=== PATIENT | female | born 1990 | race Caucasian/White ===

== ENCOUNTER 2018-10-02 10:31 | Inpatient (IN) | payer MEDICAID ==
[2018-10-02] MEDS: AMPICILLIN 2 GM/NS (PMX) 100 ML IV (11:09)
[2018-10-02] MEDS: LACTATED RINGER'S 1,000 ML IV (11:09)
[2018-10-02 11:22] LABS: ADD MAN DIFF? NO
[2018-10-02] MEDS ORDERED: LIDOCAINE 1% (MPF) 30 ML INJ (11:22)
[2018-10-02 11:29] LABS: ADD UMIC YES; UR AMORPHOUS CRYSTAL MODERATE /HPF (NONE SEEN); UR ASCORBIC ACID NEGATIVE (NEGATIVE); UR BACTERIA MODERATE /HPF (NONE SEEN); UR BILIRUBIN (Dip) NEGATIVE (NEGATIVE); UR BLOOD (Dip) 3+ mg/dL (NEGATIVE); UR CLARITY CLOUDY (CLEAR); UR COLOR AMBER (YELLOW); UR GLUCOSE (Dip) NEGATIVE (NEGATIVE); UR KETONES (Dip) TRACE mg/dL (NEGATIVE); UR LEUKOCYTE ESTERASE (Dip) 2+ Leu/ul (NEGATIVE); UR MUCUS FEW /HPF (NONE SEEN); UR NITRITE (Dip) NEGATIVE (NEGATIVE); UR RBC > 182 /HPF (0-5); UR SQUAMOUS EPITHELIAL CELL MODERATE /HPF (FEW); UR TOTAL PROTEIN (Dip) 1+ mg/dl (NEGATIVE); UR UROBILINOGEN (Dip) NEGATIVE (NEGATIVE); UR WBC 53 /HPF (0-5)
[2018-10-02 11:30] LABS: BASOPHILS % 0.3 % (0.0-2.0); EOSINOPHILS % 0.4 % (0.0-7.0); HEMATOCRIT 34.8 % (37.0-47.0); LYMPHOCYTES # 1.6 10^3/ul (0.8-2.9); MEAN CORPUSCULAR HEMOGLOBIN 27.7 pg (29.0-33.0); MEAN CORPUSCULAR HGB CONC 31.6 g/dl (32.0-37.0); MEAN CORPUSCULAR VOLUME 87.7 fl (82.0-101.0); MEAN PLATELET VOLUME 11.5 fl (7.4-10.4); MONOCYTE # 0.4 10^3/ul (0.3-0.9); MONOCYTES % 5.5 % (0.0-11.0); NEUTROPHIL # 5.8 10^3/ul (1.6-7.5); NEUTROPHILS % 73.3 % (39.0-77.0); PLATELET COUNT 175 10^3/UL (140-415); RED BLOOD COUNT 3.97 10^6/ul (4.20-5.40); RED CELL DISTRIBUTION WIDTH 14.9 % (11.5-14.5)
[2018-10-02 11:30] LABS: WHITE BLOOD COUNT 7.9 10^3/ul (4.8-10.8)
[2018-10-02] MEDS ORDERED: CARBOPROST 250 MCG INJ IM ×2 (11:30→12:30)
[2018-10-02] MEDS ORDERED: OXYTOCIN 30 UNITS/LR 500 ML IV ×3 (11:30→12:30)
[2018-10-02] MEDS ORDERED: LIDOCAINE 1% (MPF) 30 ML INJ INJ (11:30)
[2018-10-02] MEDS ORDERED: BUTORPHANOL 2 MG INJ IV (11:30)
[2018-10-02] MEDS ORDERED: MISOPROSTOL 200 MCG TAB PR ×2 (11:30→12:30)
[2018-10-02] MEDS ORDERED: METHYLERGONOVINE 0.2 MG INJ IM ×2 (11:30→12:30)
[2018-10-02 11:46] LABS: RUPTURE FETAL MEMBRANES NEGATIVE (NEGATIVE)
[2018-10-02 11:49] LABS: INR 0.88; PT RATIO 0.9
[2018-10-02] MEDS: OXYTOCIN 30 UNITS/LR 500 ML IV ×2 (11:51→12:42)
[2018-10-02 11:53] LABS: BARBITURATES Negative (NEGATIVE); BENZODIAZEPINES Negative (NEGATIVE); CANNABINOIDS Negative (NEGATIVE); COCAINE Negative (NEGATIVE); OPIATES Negative (NEGATIVE)
[2018-10-02 11:57] LABS: PARTIAL THROMBOPLASTIN TIME 25.9 Sec (23.0-35.0)
[2018-10-02 12:28] LABS: AMPHETAMINE/METHAMPHETAMINE POSITIVE (NEGATIVE)
[2018-10-02] MEDS ORDERED: LANOLIN HPA 1 PKT TOP (12:30)
[2018-10-02] MEDS: IBUPROFEN 600 MG TAB PO ×2 (12:49→17:26)
[2018-10-02 13:33] LABS: HEPATITIS B SURFACE ANTIGEN NEGATIVE (NEGATIVE)
[2018-10-02 13:43] LABS: HIV 1&2 ANTIBODY NEGATIVE (NEGATIVE)
[2018-10-02 14:57] LABS: RAPID PLASMA REAGIN NONREACTIVE (NR)
[2018-10-02] MEDS ORDERED: AMPICILLIN 1 GM/NS (PMX) 50 ML IV (15:00)
[2018-10-02] MEDS: LACTATED RINGER'S 1,000 ML IV* ×2 (20:00)
[2018-10-03] MEDS: IBUPROFEN 600 MG TAB PO ×4 (00:53→18:09)
[2018-10-03] MEDS: LACTATED RINGER'S 1,000 ML IV* (04:11)
[2018-10-03 08:49] LABS: ADD MAN DIFF? NO
[2018-10-03 09:06] LABS: BASOPHILS % 0.2 % (0.0-2.0); EOSINOPHILS # 0.1 10^3/ul (0.0-0.5); HEMOGLOBIN 9.8 g/dl (12.0-16.0); LYMPHOCYTES # 2.1 10^3/ul (0.8-2.9); MEAN CORPUSCULAR HEMOGLOBIN 28.1 pg (29.0-33.0); MEAN CORPUSCULAR HGB CONC 31.6 g/dl (32.0-37.0); MEAN CORPUSCULAR VOLUME 88.8 fl (82.0-101.0); MEAN PLATELET VOLUME 11.5 fl (7.4-10.4); MONOCYTE # 0.6 10^3/ul (0.3-0.9); MONOCYTES % 7.1 % (0.0-11.0); NEUTROPHIL # 5.2 10^3/ul (1.6-7.5); NEUTROPHILS % 64.2 % (39.0-77.0); PLATELET COUNT 145 10^3/UL (140-415); RED BLOOD COUNT 3.49 10^6/ul (4.20-5.40); RED CELL DISTRIBUTION WIDTH 15.4 % (11.5-14.5)
[2018-10-04] MEDS: IBUPROFEN 600 MG TAB PO ×3 (03:39→12:09)
[2018-10-04] MEDS: DIPHTH/TET/ACEL PERTUSS (ADULT) 0.5 ML VIAL IM* (08:54)
[2018-10-04 12:27] LABS: RUBELLA ANTIBODY - IGG 2.31 index
[2018-10-04 15:33] LABS: RUBELLA ANTIBODY - IGM <20.00 AU/mL
== END 2018-10-04 14:15 | disposition home or self-care (01) | DRG 807 ==
LOC: OBT 10:31 → L-D 10:32 → OBT 10:42 → L-D 10:42 → PP1 13:13
PROC: 10E0XZZ Delivery of Products of Conception, External Approach (ICD-10-PCS; principal; 2018-10-02)
DX: O60.14X0 Preterm labor third trimester with preterm delivery third trimester, not applicable or unspecified (principal); Z37.0 Single live birth; O69.81X0 Labor and delivery complicated by cord around neck, without compression, not applicable or unspecified; Z3A.34 34 weeks gestation of pregnancy
CPT/HCPCS: 76815; 76818; 80307; 81001; 84112; 85025; 85610; 85730; 86592; 86703; 86762; 86850; 86900; 86901; 87340; 88307; 90686; 90715; 99464